=== PATIENT | male | born 1975 | race African-American/Black ===

== ENCOUNTER 2021-06-07 10:38 | Emergency (ER) | payer SELFPAY ==
[2021-06-07] MEDS ORDERED: Ibuprofen 200 MG TAB ONE (11:30)
== END 2021-06-07 13:39 | disposition home or self-care (01) ==
LOC: CSHERS 10:38
DX: S80.12XA Contusion of left lower leg, initial encounter (principal); K02.9 Dental caries, unspecified; E11.9 Type 2 diabetes mellitus without complications; F17.210 Nicotine dependence, cigarettes, uncomplicated; W22.8XXA Striking against or struck by other objects, initial encounter
CPT/HCPCS: 36416

== ENCOUNTER 2021-06-10 18:21 | Emergency (ER) | payer SELFPAY ==
[2021-06-10] MEDS ORDERED: Cefepime 2 GM VIAL ONE (19:37)
[2021-06-10 19:55] LABS: #Eosinphils 0.1 10x3/uL (0.0-0.5); #Monocytes 0.4 10x3/uL (0.0-1.1); #Neutrophils 1.9 10x3/uL (1.5-8.4); %Basophils 1.2 % (0.0-2.0); %Eosinophils 1.5 % (0.0-6.0); %Lymphocytes 25.5 % (18.0-47.0); %Monocytes 12.6 % (0.0-10.0); %Neutrophils 58.9 % (40.0-75.0); Hemoglobin 13.8 g/dL (13.5-17.5); Mean Corpuscular HGB CONC 32.7 g/dL (32.0-36.0); Mean Corpuscular Hemoglobin 31.5 pg (27.0-33.0); Mean Corpuscular Volume 96.3 fl (81.2-95.1); Mean Platelet Volume 10.4 fl (7.4-10.4); Platelet Count 166 10x3/uL (150-450); RBC Distribution Width 12.3 % (11.5-14.5); Red Blood Cell (RBC) Count 4.38 10x6/uL (4.32-5.72); White Blood Cell (WBC) Count 3.3 10x3/uL (3.5-10.5)
[2021-06-10 20:09] LABS: ALT (SGPT) 17 U/L (8-55); AST (SGOT) 12 U/L (5-34); Albumin 3.7 g/dL (3.5-5.0); Alkaline Phosphatase 53 U/L (40-110); Anion Gap 11 mmol/L (10-20); BUN (Urea Nitrogen) 10 mg/dL (8.9-20.6); Bilirubin, Total 0.5 mg/dL (0.2-1.2); Calc. Creatinine Clearance 0 mL/min (70-130); Calcium 8.6 mg/dL (7.8-10.44); Carbon Dioxide 29 mmol/L (22-29); Chloride 105 mmol/L (98-107); Globulin 2.2 g/dL (2.4-3.5); Glucose 237 mg/dL (70-105); Potassium 3.8 mmol/L (3.5-5.1); Protein, Total 5.9 g/dL (6.0-8.3); Sodium 141 mmol/L (136-145)
[2021-06-10] MEDS ORDERED: Ketorolac Tromethamine 30 MG/ML VIAL ONE (20:14)
[2021-06-10 20:52] LABS: SARS-CoV-2 NAA Rapid Test Not Detected (NotDetected)
== END 2021-06-11 00:03 | disposition home or self-care (01) ==
LOC: CSHERS 18:21
DX: L03.116 Cellulitis of left lower limb (principal); S87.82XD Crushing injury of left lower leg, subsequent encounter; E11.9 Type 2 diabetes mellitus without complications
CPT/HCPCS: 80053; 83605; 85025; 86140; 96365; 96366; 96367; 96375; J0692; J1885; J3370; U0002

== ENCOUNTER 2022-04-01 20:15 | Emergency (ER) | payer SELFPAY ==
[2022-04-01] MEDS ORDERED: Ibuprofen 200 MG TAB ONE (20:50)
[2022-04-02 00:04] LABS: SARS-CoV-2 NAA Rapid Test DETECTED (NotDetected)
== END 2022-04-02 00:37 | disposition home or self-care (01) ==
LOC: CSHERS 20:15
DX: U07.1 COVID-19 (principal); K08.89 Other specified disorders of teeth and supporting structures; E11.9 Type 2 diabetes mellitus without complications
CPT/HCPCS: 71046